=== PATIENT | male | born 1960 | race African-American/Black ===

== ENCOUNTER 2016-09-14 01:40 | Inpatient (IN) ==
[2016-09-14] MEDS ORDERED: PANTOPRAZOLE 40 MG VIAL IV STA (02:37)
[2016-09-14] MEDS ORDERED: KETOROLAC 30 MG/1 ML VIAL IV STA (02:37)
[2016-09-14] MEDS ORDERED: ALUM/MAG/SIMETH/LIDO VISC 1:1 30 ML BOTTLE PO STA (02:37)
[2016-09-14] MEDS ORDERED: HYDROmorphone 2 MG/1 ML VIAL IV PRN ×2 (02:37→07:48)
[2016-09-14] MEDS ORDERED: SODIUM CHLORIDE 0.9% 500 ML IV STA (02:37)
[2016-09-14] MEDS ORDERED: ONDANSETRON 4 MG/2 ML VIAL IV STA (02:37)
--- NOTE | 2016-09-14 02:37 | Emergency Department Note ---
INanette Emily, am scribing for, and in the presence of, Leobardo Allen MD 02: 36. Alejandro Urrutia Charles R, MD, personally performed the services described in this documentation, ascribed by Elle Fitzpatrick in my presence, and it is both accurate and complete . Arrival - Arrival Chief Complaint: Non-Specific Stated Complaint: Scrotal Pain ED Nursing Triage Note: Patient complains of scrotal pain that began yesterday evening. States that pain radiates from pubis down into scrotum. 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 Patient also complains of cold-like symptoms. Mode of Arrival: Ambulatory Limitations: No Limitations Source: Patient - History of Present Illness HPI Narrative: Pt is a 56 y/o male who came to ED with c/o suprapubic pain that radiates into the scrotum along with rectum pain which started Saturday, September 10, 2016, but worsened this morning. Pt had surgery of infected prostate one year ago but no radiation. Pt reports having scrotum pain with BMs, but denies hemorrhoids. Pt is poor historian. PMHx of DM Onset (ago): day(s) Consistency: constant Severity: mild, moderate Severity scale (1-10): 4 Quality: aching Review of System - Review of System 12 point system: reviewed and no additional remarkable complaints except as stated - Review of System Constitutional: Absent: chills, fever Respiratory: Absent: respiratory distress Cardiovascular: Absent: chest pain Gastrointestinal: Present: abdominal pain (suprapubic radiates to scrotum). Absent: nausea Genitourinary male: Present: other ( scrotum and rectum pain) Musculoskeletal: Absent: back pain Skin: Absent: rash Neurological: Absent: headache Medical,Surgical,& Family Hx - Medical History Endocrine: History of: Diabetes Mellitus (NIDDM) - Surgical History Reproductive Surgeries: Surgical HX of;: Genitourinary Surgery, Prostate Surgery (due to infection in 2015) - Social History Smoking Status: Current every day smoker Frequency of Alcohol Use: Frequently Type of Drug Use: None Exam Vital Signs: Vital Signs Temperature 97.8 F 09/14/16 01:40 Pulse Rate 96 H 09/14/16 01:40 Respiratory Rate 18 09/14/16 02:21 Blood Pressure 138/94 09/14/16 01:40 O2 Sat by Pulse Oximetry 98 09/14/16 01:40 - General General appearance: alert, in no apparent distress - Head Head exam: Present: atraumatic, normocephalic - Eye Eye exam: Present: PERRL, EOMI - ENT ENT exam: Present: mucous membranes moist. Absent: mucous membranes dry - Neck Neck exam: Present: full ROM. Absent: tenderness - Chest Chest inspection: Present: symmetric chest wall rise. Absent: tenderness - Respiratory Respiratory exam: Present: normal lung sounds bilaterally. Absent: respiratory distress - Cardiovascular Cardiovascular exam: Present: regular rate, normal rhythm, normal heart sounds - Abdominal Exam Abdominal exam: Present: soft, tenderness (suprapubic). Absent: distention, guarding, rebound - Rectal Exam Rectal exam: Present: heme (-) stool, tenderness. Absent: hemorrhoids, normal prostate (firm) - Extremities Exam Extremities exam: Present: full ROM. Absent: tenderness, pedal edema - Back Exam Back exam: Present: full ROM. Absent: tenderness - Neurological Exam Neurological exam: Present: alert, oriented X3, CN II-XII intact. Absent: motor sensory deficit - Psychiatric Psychiatric exam: Present: normal affect, normal mood - Skin Skin exam: Present: warm, dry Course - Consultations Consultation #1: Dr. Alvarenga III will admit patient Time: 04:35 Results - Labs CBC & BMP: 09/14/16 02:57 09/14/16 02:57 Lab Results: I have reviewed the patients labs Labs: Laboratory Tests 09/14/16 02:57 Hgb 13.9 L MCV 84.6 L Lymph % (Auto) 20.6 L Laboratory Tests 09/14/16 02:57 Glucose 273 H Globulin 3.7 H Albumin/Globulin Ratio 0.9 L Lipase 71.0 L Laboratory Tests 09/14/16 02:57 Glucose 273 H Globulin 3.7 H Albumin/Globulin Ratio 0.9 L Lipase 71.0 L Disposition Clinical Impression: Rectal abscess, Sigmoid colitis Case discussed with: patient Disposition: Still a Patient Condition: Stable Time of Disposition: 05:07
[2016-09-14] MEDS ORDERED: cefTRIAXone 1,000 MG in SODIUM CHLORIDE 0.9% 100 ML IV STA (02:39)
[2016-09-14] MEDS ORDERED: cefTRIAXone 1,000 MG VIAL ONE (02:50)
[2016-09-14] MEDS ORDERED: PANTOPRAZOLE 40 MG VIAL IV ONE (02:50)
[2016-09-14] MEDS ORDERED: HYDROmorphone 2 MG/1 ML VIAL ONE (02:51)
[2016-09-14] MEDS ORDERED: ALUM/MAG/SIMETH/LIDO VISC 1:1 30 ML BOTTLE PO ONE (02:51)
[2016-09-14] MEDS ORDERED: ONDANSETRON 4 MG/2 ML VIAL ONE ×2 (02:51→10:58)
[2016-09-14] MEDS ORDERED: KETOROLAC 30 MG/1 ML VIAL ONE (02:51)
[2016-09-14 03:27] LABS: Basophils % 0.6 % (0.0-0.8); Eosinophils # 0.1 10*3/uL (0.0-0.87); Eosinophils % 1.4 % (0.00-10.9); Hematocrit 42.9 VOL% (42.0-52.0); Hemoglobin 13.9 GM/DL (14.0-18.0); Immature Granulocytes % 0.3 %; Immature Granulocytes Absolute 0.02 #; Lymphocytes # 1.4 10*3/uL (1.4-4.0); Lymphocytes % 20.6 % (21.2-54.2); Mean Corpuscular HGB Conc 32.4 GM/DL (32-36); Mean Corpuscular Hemoglobin 27 PG (27-34); Mean Corpuscular Volume 84.6 FL (87-102); Mean Platelet Volume 10.4 FL (9.6-12.0); Monocytes # 0.8 10*3/uL (0.11-0.8); Monocytes % 11.1 % (1.7-12.7); Neutrophils # 4.6 10*3/uL (1.4-7.4); Platelet Count 153 T/CUMM (130-400); Red Blood Count 5.07 MC/CUMM (3.8-5.5)
[2016-09-14 04:07] LABS: Albumin 3.4 G/DL (3.4-5.0); Bilirubin,Total 0.6 MG/DL (0.2-1.0); Calcium 9.4 MG/DL (8.5-10.1); Magnesium 1.9 MG/DL (1.8-2.4); Osmolality,Calculated 285.5 MOS/KG (273-304); Potassium 4.1 MMOL/L (3.5-5.1); Total Protein 7.1 G/DL (6.4-8.3)
[2016-09-14] MEDS ORDERED: PIPERACILLIN/TAZOBACTAM 3,375 MG in SODIUM CHLORIDE 0.9% 100 ML IV STA (04:21)
[2016-09-14] MEDS ORDERED: PIPERACILLIN/TAZOBACTAM 3,375 MG VIAL IV ONE (04:26)
[2016-09-14] MEDS ORDERED: SODIUM CHLORIDE 0.9% 100 ML IV ONE (04:27)
--- NOTE | 2016-09-14 06:41 | General Surg History&Physical ---
Assessment and Plan - Time spent with patient Time spent with patient: Greater than 30 minutes (1) Rectal abscess Status: Acute Assessment and plan: The patient appears to have a perirectal abscess which is rather high and may be above the levators. This is not palpable on rectal exam as a discrete abscess but there is tenderness and induration along the right side of the rectum. This is not visible externally. I think that to address this will probably be best accomplished under anesthesia with exploration and drainage internally. This was discussed with the patient. We will admit him and take him to surgery for drainage. The question of a foreign body on some of the images on CT scan may be old. But we will explore and see if there is any evidence of trauma. We will go ahead and start IV antibiotics. Procedure and risk were discussed with the patient and he wishes to proceed. Current Visit: Yes History of Present Illness Chief complaint: rectal pain History of present illness: Mr. Quinones is a 56 year old male Who for 3-4 days is had pain in his rectal area. He denies fever or chills and denies abdominal pain this pain radiates into his back. It is constant. It is worse if he sits down. He has had a previous rectal surgery that he does not know what was but states that this was done at [place] about a year ago. He has not had any trauma to his rectum is unaware of any foreign bodies or instrumentation. He had a CT scan showing an abscess and there is a question of a foreign body in the soft tissues to the right. It is unclear if this is old or new. He has not had any rectal bleeding. Medical,Surgical,& Family Hx - Medical History Endocrine: History of: Diabetes Mellitus (NIDDM) - Surgical History Reproductive Surgeries: Surgical HX of;: Genitourinary Surgery, Prostate Surgery (due to infection in 2016) - Social History Smoking Status: Current every day smoker Frequency of Alcohol Use: Frequently Type of Drug Use: None Exam - Constitutional Vitals: Period Temp Pulse Resp BP Sys/Sánchez Pulse Ox Last 24 Hr 97.8 F-97.8 F 79-96 16-20 138-146/87-94 95-99 General appearance: no acute distress - Head Head exam: Present: normocephalic - Eye Eye exam: Absent: scleral icterus - ENT Mouth exam: Present: normal voice - Neck Neck exam: Present: trachea midline - Respiratory Respiratory exam: Present: clear to auscultation bilaterally. Absent: accessory muscle use - Cardiovascular Cardiovascular exam: Present: RRR - GI/Abdominal GI/Abdominal exam: Present: soft. Absent: distended, guarding, tenderness, rebound - Anus/Rectum Anus/Rectum: other (tenderness along the right anal sidewall. External exam is unremarkable. I cannot palpate an abscess or foreign body.) - Constitutional Constitutional: Absent: anorexia, chills, fever(s), weight loss - EENT Nose, mouth and throat: Absent: dysphagia, sore throat - Cardiovascular Cardiovascular: Absent: chest pain at rest, chest pain with activity, dyspnea, dyspnea on exertion, syncope - Respiratory Respiratory: Absent: cough, dyspnea, hemoptysis, dyspnea on exertion - Gastrointestinal Gastrointestinal: Absent: abdominal pain, bloating, hematemesis, hematochezia, nausea, vomiting, jaundice - Genitourinary Genitourinary: Present: dysuria. Absent: hematuria - Musculoskeletal Musculoskeletal: Present: back pain - Neurological Neurological: Absent: focal weakness, syncope - Endocrine Endocrine: Absent: polyuria Hematologic/Lymphatic: Absent: easy bleeding, easy bruising Results - Labs CBC & BMP: 09/14/16 02:57 09/14/16 02:57 Lab Results: I have reviewed the past 24 hour labs - Diagnostic Findings Procedure: CT Abdomen and Pelvis: image reviewed by me
[2016-09-14] MEDS ORDERED: FAMOTIDINE 20 MG/2 ML VIAL IV ONE (07:40)
[2016-09-14] MEDS ORDERED: ALBUTEROL 2.5 MG/3 ML NEB RESP TX ONE (07:40)
--- NOTE | 2016-09-14 07:44 | CT Report ---
CT abdomen pelvis wo con Indication: Abdominal/pelvic pain midline lower Comparison: None. Technique: CT of the abdomen and pelvis was performed without administration of intravenous contrast. Coronal and sagittal reformatted images were additionally created and submitted for review. The total DLP is 390.3 mGy*cm. Dose reduction: This CT exam was performed using one or more of the following dose reduction techniques: Automated exposure control, automated adjustment of the mA and/or KV according to patient size, or use of iterative reconstruction technique. Findings: Very minimal posterior basilar dependent atelectatic changes are noted bilaterally. Lung bases are otherwise clear. There is no pleural or pericardial effusion. ABDOMEN: Liver/Gallbladder: Unenhanced liver appears grossly within normal limits. There is no biliary ductal dilatation. No gallstones are visualized. Spleen: No acute findings. Pancreas: Surgical judith are noted next to the pancreatic head/body, which is of uncertain significance. Pancreas otherwise appears grossly unremarkable for noncontrast study. Adrenals: Within normal limits in appearance. Kidneys: Both kidneys are symmetric in size. There is no evidence of hydronephrosis. No renal stones are visualized. Bowel/mesentery: Appendix is normal. Small bowel is nondilated. There is no free fluid/air within the abdomen. Moderate stool noted throughout colon. There is also slight mass effect with narrowing of the distal rectum, which is of uncertain significance. A 3.6 x 3.5 cm soft tissue area within the perirectal fat on the right is not well visualized given lack of intravenous and oral contrast. There is minimal surrounding soft tissue fat stranding and a focal perirectal abscess or rectal proctitis is not excluded. Malignancy is also not excluded. Additionally, within the right perirectal soft tissues on image [id number], there is a linear calcific and/or metallic density, which is nonspecific but may represent a retained foreign body Retroperitoneum: No evidence of aortic aneurysm or significant retroperitoneal adenopathy. PELVIS: See bowel/mesentery section above for rectal findings. No free fluid in the dependent pelvis. Bladder appears unremarkable. Prostate is within normal limits. There is no adenopathy in the pelvis. BONES: No acute or suspicious osseous abnormalities are identified. IMPRESSION: Soft tissue fullness adjacent to the distal right rectum with surrounding inflammatory changes is suspicious for a focal perirectal abscess. This is poorly evaluated given lack of oral and intravenous contrast. Underlying malignancy is not excluded. Direct examination is suggested. Consider follow-up CT pelvis with contrast if there is any clinical concern for malignancy. Possible foreign body within the right perirectal soft tissues as detailed above. Preliminary report by virtual radiologic. 09/14/2016 7:34 AM PROCEDURE INTERPRETED AT [facility] DEPARTMENT OF RADIOLOGY Final Report Signed by: Dino Duenas
[2016-09-14] MEDS ORDERED: DEXTROSE 50% 25 GM/50 ML VIAL IV PRN ×2 (07:48→13:59)
[2016-09-14] MEDS ORDERED: ACETAMINOPHEN 325 MG TABLET PO PRN (07:48)
[2016-09-14] MEDS ORDERED: ONDANSETRON 4 MG/2 ML VIAL IV PRN (07:48)
[2016-09-14] MEDS ORDERED: GLUCAGON 1 MG VIAL IM PRN ×2 (07:48→13:59)
[2016-09-14] MEDS ORDERED: LACTATED RINGERS 1,000 ML IV SCH (08:00)
--- NOTE | 2016-09-14 08:13 | XRay Report ---
XR abdomen 2V Clinical Information: Lower abdominal/pelvic pain/rectal pain Comparison: None Findings: Bowel gas pattern is nonspecific and within normal limits. No abnormally dilated small bowel loops are identified to suggest obstruction. There is no free air identified. Scattered fecal material is noted throughout colon, which is otherwise nondilated. No abnormal focal soft tissue masses or calcific densities are identified in the abdomen or pelvis. Surgical judith are noted within the midline abdomen. Lung bases appear predominantly clear. There is no acute osseous abnormality. No suspicious osseous lesions are identified. Impression: No acute radiographic abnormality in the abdomen. PROCEDURE INTERPRETED AT [facility] DEPARTMENT OF RADIOLOGY Final Report Signed by: Dino Duenas
[2016-09-14] MEDS ORDERED: BUPIVACAINE MPF 0.25% /EPI 30 ML VIAL ONE (08:41)
[2016-09-14] MEDS ORDERED: LIDOCAINE 2%/EPI 20 ML VIAL ONE (08:41)
[2016-09-14] MEDS ORDERED: LIDOCAINE 1% 5 ML VIAL ONE (10:58)
[2016-09-14] MEDS ORDERED: PROPOFOL 200 MG/20 ML VIAL IV ONE (10:58)
[2016-09-14] MEDS: metroNIDAZOLE INJ 500 MG in PREMIX 1 EACH IV SCH ×2 (11:08→16:08)
--- NOTE | 2016-09-14 11:45 | Operative Note ---
Date of procedure: 09/14/16 Pre-op diagnosis: pelvic abscess Post-op diagnosis: same Procedure: Rectal exam under anesthesia and transrectal drainage of pelvic abscess Findings and technique: After informed consent was obtained the patient was brought the operating room and placed in spine position. After successful induction with general anesthesia the patient was placed in lithotomy position and his perineum prepped and draped in usual sterile fashion. External exam was unremarkable. Anal exam was remarkable for some degree of anal stenosis in this patient who had had previous surgery. We did not have records of his surgery. Digital exam revealed an area of induration and bulging at my fingertip at probably about 6 cm well above the dentate line protruding from posterior into the right displacing the rectum to the left. A small operating anoscope had to be inserted I could not use the regular size because of anal stenosis. This area was visualized and I used a spinal needle to aspirate pus from the bulging area and then cut along this tract with a lack electrocautery entering the abscess space. This was spread open just a little bit wider with a hemostat and a large amount of pus evacuated and cultured. I was able to place a suction cannula within the abscess cavity and this was irrigated suctioned out and left open. No bleeding was noted. He appeared to tolerate the procedure well. He did receive perioperative IV antibiotics. Anesthesia: GETA Surgeon / Physician: Sami Alvarenga III. Estimated blood loss: minimal Specimens: other (cultures) Condition: stable Disposition: PACU Results - Labs CBC & BMP: 09/14/16 02:57 09/14/16 02:57
[2016-09-14] MEDS ORDERED: SEVOFLURANE 1 UNIT/15 MINUTE INH ONE (11:49)
[2016-09-14] MEDS ORDERED: MIDAZOLAM 2 MG/2 ML VIAL ONE (11:50)
[2016-09-14] MEDS ORDERED: fentaNYL 100 MCG/2 ML VIAL ONE (11:50)
--- NOTE | 2016-09-14 13:32 | Hospitalist Consult Note ---
<Kamran Larsen - Last Filed: 09/14/16 14:09> Assessment and Plan (1) Diabetes Status: Acute Assessment and plan: Pt. has a history of DM. Pt states he takes metformin for management. Admits to poor diet. Plan will be to intiate insulin sliding scale on patient. Consult diabetic education. Monitor blood sugars. Current Visit: Yes History of Present Illness - Data of Consult Consult date: 09/14/16 - Consult Narrative History of present illness: Mr. Quinones is a 56-year-old black male patient who presented to the ED yesterday with complaints of scrotal pain. Patient stated that the pain within his scrotum and extended to his rectal area. Patient states that the pain began on Saturday. Pt has a history of prostate issues and DM. The patient was admitted to the hospital and evaluated by surgery. Surgery performed today for rectal abcess. Hospitalist service consulted for management of diabetes and any other medical issues. Pt. seen postoperatively. Pt was awake and alert with no distress. Reports slight discomfort but otherwise no complaints. Discussed dm management with patient. Will initiate sliding scale insulin and diabetic education. Order A1c to monitor patient's status. We will continue to follow. Thank you for the consult. CC: Sami Alvarenga III., - Home Medications and Allergies Home Medications: Home Medications Medication Instructions Recorded Confirmed Type metFORMIN [Glucophage] 500 mg PO DAILY W/SUPPER 09/14/16 09/14/16 History Allergies/Adverse Reactions: Allergies Allergy/AdvReac Type Severity Reaction Status Date / Time No Known Allergies Allergy Verified 09/14/16 07:48 Medical,Surgical,& Family Hx - Medical History Endocrine: History of: Diabetes Mellitus (NIDDM) - Surgical History Reproductive Surgeries: Surgical HX of;: Genitourinary Surgery, Prostate Surgery (due to infection in 2016) - Family History Family History: Reports;: Family Diabetes, Family Hypertension - Social History Smoking Status: Heavy tobacco smoker Frequency of Alcohol Use: Frequently Type of Drug Use: None - Constitutional Constitutional: Absent: fatigue, fever(s) - EENT Eyes: Absent: loss of vision - Cardiovascular Cardiovascular: Absent: chest pain at rest - Gastrointestinal Gastrointestinal: Present: abdominal pain (prior to coming in to hospital. issue resolved now.) - Genitourinary Genitourinary: Absent: difficulty urinating - Musculoskeletal Musculoskeletal: Absent: limited range of motion Exam - Constitutional Vitals: Period Temp Pulse Resp BP Sys/Sánchez Pulse Ox Last 24 Hr 97.1 F-98.8 F 70-81 12-20 105-159/60-88 96-100 General appearance: normal weight, no acute distress - Head Head exam: Present: normal inspection, normocephalic - Eye Eye exam: Present: EOMI Pupils: Present: GAYATHRI, normal accommodation - Neck Neck exam: Present: normal inspection - Respiratory Respiratory exam: Present: clear to auscultation bilaterally. Absent: wheezes - Cardiovascular Cardiovascular exam: Present: regular rate and rhythm - GI/Abdominal GI/Abdominal exam: Present: normal bowel sounds, soft. Absent: tenderness - Extremities Exam Extremities exam: Present: normal inspection, normal capillary refill, full ROM - Neurological Exam Neurological exam: Present: alert, oriented X3 - Psychiatric Psychiatric exam: Present: normal affect, normal mood - Skin Skin exam: Present: normal color, warm, dry Results - Labs CBC & BMP: 09/14/16 02:57 09/14/16 02:57 Lab Results: I have reviewed the past 24 hour labs Quality Measures - VTE Contraindication to Pharmacological VTE Prophylaxis: High Risk of Bleeding <Kayla Field - Last Filed: 09/14/16 15:11> Assessment and Plan (1) Hypertension Status: Acute Assessment and plan: norvasc 5 mg daily Current Visit: Yes (2) Diabetes Status: Acute Assessment and plan: will start glyburide, hold metformin due to recent ct Current Visit: Yes (3) Rectal abscess Status: Acute Assessment and plan: s/p debridement Current Visit: Yes History of Present Illness - Data of Consult Requesting Physician: Sami Alvarenga III. - Consult Narrative Reason for consult: management of diabetes and htn History of present illness: Mr. Quinones is a 56 year old male seen and examined. Hospital course reviewed and edited. Patients new elevated blood pressure despite pain control. Will start low dose norvasc. Hold metformin due to recent ct of abdomen and pelvis. CC: Sami Alvarenga III., Medical,Surgical,& Family Hx - Social History Marital Status: Single Lives With:: Alone Functional capacity: independent ambulation - EENT Eyes: Absent: blurry vision Ears: Absent: decreased hearing, ear discharge Nose, mouth and throat: Absent: headache(s), sore throat - Cardiovascular Cardiovascular: Absent: dyspnea, dyspnea on exertion - Respiratory Respiratory: Absent: cough, dyspnea, dyspnea on exertion - Gastrointestinal Gastrointestinal: Present: nausea. Absent: vomiting - Genitourinary Genitourinary: Absent: dysuria - Musculoskeletal Musculoskeletal: Absent: back pain - Neurological Neurological: Absent: headache(s), syncope - Psychiatric Psychiatric: Absent: anxiety, depression - Endocrine Endocrine: Absent: cold intolerance, heat intolerance - Hematologic/Lymphatic Hematologic/Lymphatic: Absent: easy bleeding, easy bruising Exam - Constitutional Vitals: Period Temp Pulse Resp BP Sys/Sánchez Pulse Ox Last 24 Hr 97.1 F-98.8 F 70-81 12-20 105-159/60-88 96-100 - Eye Eye exam: Absent: scleral icterus - ENT ENT exam: Present: normal exam, normal external ear exam - Neck Neck exam: Absent: lymphadenopathy, thyromegaly - Cardiovascular Cardiovascular exam: Absent: systolic murmur - Neurological Exam Neurological exam: Present: CN II-XII intact, reflexes normal. Absent: motor sensory deficit Results - Labs CBC & BMP: 09/14/16 02:57 09/14/16 02:57 - Diagnostic Findings Procedure: CT Abdomen and Pelvis: report reviewed by me (pelvic abscess)
[2016-09-14] MEDS: INSULIN REGULAR 100 UNIT/ML SUBCUT SCH ×3 (13:58→23:21)
[2016-09-14] MEDS: PIPERACILLIN/TAZOBACTAM 3,375 MG in SODIUM CHLORIDE 0.9% 100 ML IV SCH ×2 (14:00→20:04)
--- NOTE | 2016-09-14 14:00 | Anesthesia ---
Anesthesia Post OP - Post Ansesthetic Evaluation Patient seen in post op: Yes Resp: within normal limits CV: within normal limits Mental: within normal limits Temp: within normal limits [id number]: within normal limits Nausea and Vomiting: within normal limits Pain: within normal limits
[2016-09-14] MEDS: amLODIPine 5 MG TABLET PO SCH (16:08)
[2016-09-14] MEDS: DOCUSATE SODIUM 100 MG CAPSULE PO SCH ×2 (16:27→21:56)
[2016-09-14] MEDS: PANTOPRAZOLE 40 MG VIAL IV SCH (16:27)
[2016-09-14] MEDS: LACTATED RINGERS 1,000 ML IV SCH (16:29)
[2016-09-14] MEDS: glyBURIDE 5 MG TABLET PO SCH (18:00)
[2016-09-15] MEDS: metroNIDAZOLE INJ 500 MG in PREMIX 1 EACH IV SCH ×2 (00:21→09:50)
[2016-09-15] MEDS: LACTATED RINGERS 1,000 ML IV SCH ×2 (00:22→14:10)
[2016-09-15 03:47] LABS: Basophils % 0.5 % (0.0-0.8); Eosinophils # 0.1 10*3/uL (0.0-0.87); Eosinophils % 1.5 % (0.00-10.9); Hematocrit 35.4 VOL% (42.0-52.0); Hemoglobin 11.8 GM/DL (14.0-18.0); Immature Granulocytes % 0.2 %; Immature Granulocytes Absolute 0.01 #; Lymphocytes # 1.5 10*3/uL (1.4-4.0); Lymphocytes % 25.4 % (21.2-54.2); Mean Corpuscular HGB Conc 33.3 GM/DL (32-36); Mean Corpuscular Hemoglobin 27 PG (27-34); Mean Corpuscular Volume 82.1 FL (87-102); Mean Platelet Volume 10.5 FL (9.6-12.0); Monocytes # 0.9 10*3/uL (0.11-0.8); Monocytes % 14.4 % (1.7-12.7); Neutrophils # 3.4 10*3/uL (1.4-7.4); Platelet Count 145 T/CUMM (130-400); Red Blood Count 4.31 MC/CUMM (3.8-5.5); Red Cell Distribution Width 12.7 % (9.3-17.3); White Blood Count 5.9 T/CUMM (4-12)
[2016-09-15 04:12] LABS: Albumin 2.8 G/DL (3.4-5.0); Bilirubin,Total 0.7 MG/DL (0.2-1.0); Calcium 8.7 MG/DL (8.5-10.1); Magnesium 1.8 MG/DL (1.8-2.4); Osmolality,Calculated 276.4 MOS/KG (273-304); Potassium 3.5 MMOL/L (3.5-5.1); Total Protein 5.8 G/DL (6.4-8.3)
[2016-09-15] MEDS: PIPERACILLIN/TAZOBACTAM 3,375 MG in SODIUM CHLORIDE 0.9% 100 ML IV SCH ×2 (04:41→14:10)
--- NOTE | 2016-09-15 07:55 | XRay Report ---
History: Abdominal pain. Pelvic abscess Date: 09/15/2016 Study: Flat and erect abdomen Comparison exam: 09/14/2016 There is no evidence of pneumoperitoneum. The bowel gas pattern is nonobstructive without gross mass lesion. Scattered stool and air are noted in the normal caliber,. Surgical clips overlie the upper central abdomen. Osseous structures are unchanged. Impression: No acute process PROCEDURE INTERPRETED AT [facility] DEPARTMENT OF RADIOLOGY Final Report Signed by: Dr. Mary Gilbert
[2016-09-15] MEDS: INSULIN REGULAR 100 UNIT/ML SUBCUT SCH ×2 (07:59→12:29)
[2016-09-15] MEDS: glyBURIDE 5 MG TABLET PO SCH (09:47)
[2016-09-15] MEDS: DOCUSATE SODIUM 100 MG CAPSULE PO SCH (09:50)
[2016-09-15] MEDS: amLODIPine 5 MG TABLET PO SCH (09:50)
[2016-09-15] MEDS: PANTOPRAZOLE 40 MG VIAL IV SCH (09:50)
--- NOTE | 2016-09-15 10:41 | Hospitalist Progress Note ---
Assessment and Plan (1) Hypertension Status: Acute Assessment and plan: norvasc 5 mg daily Current Visit: Yes (2) Diabetes Status: Acute Assessment and plan: bs too low will decrease glyburide Current Visit: Yes (3) Rectal abscess Status: Acute Assessment and plan: s/p debridement growing two types of gram negative rods Current Visit: Yes Hospitalist: Subjective Interval history: Patient more alert today. Patient asked for me not to put him on metformin as that causes severe diarrhea for him. With him having a an abscess in that area we will comply. Exam - Constitutional Vitals: Period Temp Pulse Resp BP Sys/Sánchez Pulse Ox Last 24 Hr 97.1 F-100.4 F 73-89 12-20 105-159/60-89 96-100 Exam: Heart Rate-[RRR] Lungs-[CTAB] GI-[+bs soft, NT] Ext-[no edema] Neuro [Motor 5/5], [alert and oriented times 3] psych [normal mood and affect] General [no acute distress] Results - Labs CBC & BMP: 09/15/16 03:20 09/15/16 03:20 Labs: Blood cultures 2 negative no growth, abscess growing 2 types of gram-negative rods Quality Measures - VTE Contraindication to Pharmacological VTE Prophylaxis: High Risk of Bleeding
[2016-09-15] MEDS ORDERED: ENOXAPARIN 40 MG/0.4 ML SYRINGE SUBCUT SCH (11:00)
--- NOTE | 2016-09-15 11:16 | Discharge Summary ---
Hospital Course - Hospital Course Hospital Course: This patient was admitted to the surgical service for a perirectal abscess that was drained in the operating room using transrectal drainage of a pelvic abscess. The patient did well postoperatively. He had a low-grade temperature overnight and his cultures initially grew gram-negative rods with 2 different bacterial strains. The final cultures were still pending with the patient felt much better and wanted to be discharged home. He had normal vital signs. He was discharged home on a 10 day course of Levaquin and Flagyl and follow-up with Dr. Alvarenga as an outpatient. He was given warning signs for return to the ER if he worsens. Discharge Plan - Discharge Data Disposition: Disch To Home/Self Care Condition at Discharge: Stable Discharge Diet: advance to your usual diet Activity: resume usual activities as tolerated Hygiene: may shower Driving: no restrictions Contact your physician if you experience:: fever over 101, Difficulty voiding, Redness or swelling, Nausea/Vomiting, Shortness of breath, Bleeding, pain uncontrolled by pain medications - Discharge Medications New HYDROcodone/ACETAMIN 7.5-325 [[place] 7.5-325] 1 tablet PO Q4H PRN #30 tablet PRN Reason: Pain Moderate (4-7) Levofloxacin Tab [Levaquin Tab] 750 mg PO DAILY #10 tablet amLODIPine [Norvasc] 5 mg PO DAILY #30 tablet glyBURIDE [Diabeta] 2.5 mg PO BID W/MEALS #60 tablet metroNIDAZOLE TAB [Flagyl Cap/Tab] 500 mg PO TID #30 tablet Discontinued metFORMIN [Glucophage] 500 mg PO DAILY W/SUPPER - Follow Up or Referral Follow Up: Sami Alvarenga III., MD [Physician] - 1 Week - Forms/Instructions Exam - Constitutional Vitals: Period Temp Pulse Resp BP Sys/Sánchez Pulse Ox Last 24 Hr 97.1 F-100.4 F 73-89 12-20 105-159/60-89 96-100 General appearance: normal weight, no acute distress - Head Head exam: Present: normal inspection, normocephalic - Eye Eye exam: Present: EOMI. Absent: conjunctival injection Pupils: Present: GAYATHRI, normal accommodation - ENT ENT exam: Present: normal exam - Neck Neck exam: Present: normal inspection - Respiratory Respiratory exam: Present: clear to auscultation bilaterally. Absent: accessory muscle use - Cardiovascular Cardiovascular exam: Present: regular rate and rhythm. Absent: systolic murmur , tachycardia - GI/Abdominal GI/Abdominal exam: Present: soft. Absent: tenderness, rebound - Extremities Exam Extremities exam: Present: normal inspection, normal capillary refill - Back Exam Back exam: Present: normal inspection - Neurological Exam Neurological exam: Present: alert, oriented X3 - Psychiatric Psychiatric exam: Present: normal affect, normal mood - Skin Skin exam: Present: normal color, warm Discharge Results Procedures and tests throughout hospitalization: Pending Orders 09/14/16 Abscess Culture Routine Anaerobic Culture Routine Labs on day of discharge: Labs from last 24 hours 09/15/16 09/15/16 09/15/16 08:06 07:09 03:20 WBC RBC Hgb Hct MCV MCH MCHC RDW Plt Count MPV Neut % (Auto) Lymph % (Auto) [place] % (Auto) Eos % (Auto) Baso % (Auto) Neut # (Auto) Lymph # (Auto) Glad[place] # (Auto) Eos # (Auto) Baso # (Auto) Immature Gran % Nucleated RBC % Immature Gran # Nucleated RBCs # Sodium 140 Potassium 3.5 Chloride 102 Carbon Dioxide 27 Anion Gap 14.5 BUN 11 Creatinine 0.70 GFR Calculation 145 BUN/Creatinine Ratio 15.00 Glucose 80 POC Glucose 101 72 L Calculated Osmolality 276.4 Calcium 8.7 Magnesium 1.8 Total Bilirubin 0.70 AST 17 ALT 24 Alkaline Phosphatase 57 Total Protein 5.8 L Albumin 2.8 L Globulin 3.0 Albumin/Globulin Ratio 0.9 L 09/15/16 09/14/16 09/14/16 03:20 23:13 22:03 WBC 5.9 RBC 4.31 Hgb 11.8 L D Hct 35.4 L MCV 82.1 L MCH 27 MCHC 33.3 RDW 12.7 Plt Count 145 MPV 10.5 Neut % (Auto) 58.0 Lymph % (Auto) 25.4 Gladwin % (Auto) 14.4 H Eos % (Auto) 1.5 Baso % (Auto) 0.5 Neut # (Auto) 3.4 Lymph # (Auto) 1.5 Glad[place] # (Auto) 0.9 H Eos # (Auto) 0.1 Baso # (Auto) 0.0 Immature Gran % 0.2 Nucleated RBC % 0.0 Immature Gran # 0.01 Nucleated RBCs # 0.00 Sodium Potassium Chloride Carbon Dioxide Anion Gap BUN Creatinine GFR Calculation BUN/Creatinine Ratio Glucose POC Glucose 95 100 Calculated Osmolality Calcium Magnesium Total Bilirubin AST ALT Alkaline Phosphatase Total Protein Albumin Globulin Albumin/Globulin Ratio 09/14/16 16:58 WBC RBC Hgb Hct MCV MCH MCHC RDW Plt Count MPV Neut % (Auto) Lymph % (Auto) [place] % (Auto) Eos % (Auto) Baso % (Auto) Neut # (Auto) Lymph # (Auto) Gladwin # (Auto) Eos # (Auto) Baso # (Auto) Immature Gran % Nucleated RBC % Immature Gran # Nucleated RBCs # Sodium Potassium Chloride Carbon Dioxide Anion Gap BUN Creatinine GFR Calculation BUN/Creatinine Ratio Glucose POC Glucose 286 H Calculated Osmolality Calcium Magnesium Total Bilirubin AST ALT Alkaline Phosphatase Total Protein Albumin Globulin Albumin/Globulin Ratio Preliminary micro results at discharge 09/14/16 Unknown Abscess Culture - Preliminary Rectum Gram Negative Rods Gram Negative Rods#2 DS: Provider Date of admission: 09/14/16 05:08 Primary care physician: . No PCP Attending physician on admission: Bill Colette, III., Consults: 09/14/16 08:01 Consult to Pharmacy [CONS] Routine Reason for Pharmacy Consult: Adjust Meds Renal Funct 09/14/16 13:21 Consult to Pastoral Services [CONS] Routine Comment: Pastoral Screen: Request Service Planner Visit Pastoral Screen Source of Request: Patient 09/15/16 10:54 Consult to Case Mgmt/Social Srvs [CONS] Routine Reason for Case Mgmt/Social Srvs: Other Consult Comment: financial assistance with medications Discharging clinician: Sergio Mendez MD Expected date of discharge: 09/15/16
[2016-09-15 12:29] VITALS: BP 124/71
== END 2016-09-15 13:55 | disposition home or self-care (01) | DRG 346 ==
LOC: N.ED 01:40 → N.EDINP 05:08 → N.3E 07:43
PROVIDERS: ADMIT Surgery; ATTEND Surgery